=== PATIENT | female | born 1995 | race Caucasian/White ===

== ENCOUNTER 2024-12-30 10:14 | Outpatient (CLI) | payer OTHER, SELFPAY ==
[2024-12-30 10:58] LABS: Basophils # 0.1 K/mm3 (0-0.2); Basophils % 0.6 % (0.1-2.0); Eosinophils # 0.1 Kmm3 (0.0-0.4); Hematocrit 37.4 % (37.0-47.0); Hemoglobin 11.7 g/dL (12.2-16.2); Immature Granulocytes # 0.05 10^3uL; Immature Granulocytes % 0.6 %; Lymphocytes # 2.1 K/mm3 (0.7-4.5); Lymphocytes % 26.3 % (10-50); Mean Corpuscular HGB Conc 31.3 g/dL (31.8-35.4); Mean Corpuscular Hemoglobin 25.8 pg (27.0-31.2); Mean Corpuscular Volume 82.4 fl (81-99); Mean Platelet Volume 11.3 fl (7.4-10.4); Monocytes # 0.4 K/mm3 (0.1-1.0); Monocytes % 4.7 % (1.7-9.3); Neutrophils # 5.3 K/mm3 (1.8-7.8); Neutrophils % 66.8 % (37.0-80.0); Nucleated Red Blood Cells # 0 10^3/uL; Nucleated Red Blood Cells % 0 %; Platelet Count 279 K/mm3 (142-424); Red Blood Count 4.54 M/mm3 (4.20-5.40); Red Cell Distribution Width-SD 41.3 fL; White Blood Count 7.9 K/mm3 (4.8-10.8)
[2024-12-30 11:09] LABS: Hemoglobin A1C 5.7 % (4.0-6.0)
[2024-12-30 11:20] LABS: Albumin Level 4.3 g/dl (3.5-5.0); Chloride 104 mmol/L (98-107); Potassium 4.3 mmoL/L (3.5-5.1); Sodium 139 mmol/L (136-145)
[2024-12-30 11:22] LABS: Blood Urea Nitrogen 14 mg/dl (7-17); Estimated Glomerular Filt Rate 84 ml/min (>60); GFR (African American) 102 ML/MIN (>60)
[2024-12-30 11:23] LABS: Alanine Aminotransferase 24 U/L (12-78); Albumin/Globulin Ratio 1.5 (1.1-1.8); Alkaline Phosphatase 74 U/L (38-126); Anion Gap 10.3 mEq/L (5-15); Aspartate Amino Transferase 23 U/L (14-36); Bilirubin,Total 0.6 mg/dl (0.2-1.3); Calcium 9.2 mg/dl (8.4-10.2); Carbon Dioxide 29 mmol/L (22.0-30.0); Chol/HDL Ratio 5.5 (1-3.5); Cholesterol 166 mg/dl (140-200); Globulin 2.8 g/dL (1.3-3.2); Glucose 126 mg/dl (74-100); HDL Cholesterol 30 mg/dl (40-60); Total Protein,Serum 7.1 g/dl (6.3-8.2); Triglycerides 198 mg/dl (30-150); VLDL Cholesterol 40 mg/dL (0-40)
[2024-12-30 11:34] LABS: Direct LDL Cholesterol 96.05 mg/dL (100-129)
[2024-12-30 11:40] LABS: 25-OH Vitamin D, Total 40.6 ng/mL (30-100)
[2024-12-30 11:42] LABS: Free T4 (Free Thyroxine) 1.18 ng/dl (0.78-2.19)
[2024-12-30 11:54] LABS: Thyroid Stimulating Hormone 1.48 uIU/mL (0.465-4.68)
[2024-12-30 11:58] LABS: Ferritin 10.3 ng/ml (6.24-137)
[2024-12-30 12:26] LABS: Vitamin B12 369 pg/mL (239-931)
[2024-12-31 08:14] LABS: Thyroid Peroxidase Antibodies 10 IU/mL (0-34)
[2024-12-31 17:42] LABS: Thyroglobulin Level <1.0 IU/mL (0.0-0.9)
[2025-01-01 05:29] LABS: Triiodothyronine (T3) Free 3.8 pg/mL (2.0-4.4)
[2025-01-01 13:25] LABS: F026-IgE Pork < 0.10 kU/L (Class 0); F027-IgE Beef < 0.10 kU/L (Class 0); F088-IgE Lamb < 0.10 kU/L (Class 0); Immunoglobulin E, Total 7 IU/mL (6-495); O215-IgE Alpha-Gal < 0.10 kU/L (Class 0)
== END 2024-12-30 23:59 | disposition home or self-care (01) ==
PROVIDERS: PCP Nurse Practitioner Family; Visit Provider Nurse Practitioner Family
DX: L50.9 Urticaria, unspecified (principal); F32.A Depression, unspecified; F41.9 Anxiety disorder, unspecified; R19.7 Diarrhea, unspecified; R63.5 Abnormal weight gain; Z13.220 Encounter for screening for lipoid disorders
CPT/HCPCS: 36415; 80053; 80061; 82306; 82607; 82728; 82785; 83036; 84436; 84439; 84443; 84481; 85025; 86003; 86008; 86376; 86800

== ENCOUNTER 2025-02-11 06:59 | Outpatient (CLI) | payer OTHER, SELFPAY ==
--- NOTE | 2025-02-11 07:00 | CT_ITS ---
FINAL REPORT TECHNIQUE: Multiple axial CT sections were performed through the face without IV contrast. Coronal reconstruction images were performed. This study was performed with techniques to keep radiation doses as low as reasonably achievable (ALARA). Individualized dose reduction techniques using automated exposure control or adjustment of mA and/or kV according to the patient's size were employed. CLINICAL HISTORY: Left TMJ dysfunction, bruxism FINDINGS: There is lobular cysts soft tissue in the right maxillary sinus consistent with retention cysts or polyps. The TMJs appear intact. The mandibular condyles demonstrate smooth margins. IMPRESSION: Chronic right maxillary sinusitis. No TMJ abnormality. Reviewed, Interpreted and Dictated by Geovany Ramirez MD Transcribed by Anisa Contreras Authenticated and . [facility]
--- OUTSIDE RECORDS SUMMARY | 2025-02-11 07:01 | XMS_ITS | Clinical Summary ---
Author Organization Healthcare Address [address] [place] [address] Care Team Providers Care Electronic Sales And Service Technician Name Role Phone Rajat Hess MD Primary Care Provider [phone] Allergies No known active allergies Medications prazosin (Minipress) 2 MG capsule Take 1 capsule (2 mg) by mouth every night. Active FLUoxetine (PROzac) 40 MG capsule Take 1 capsule (40 mg) by mouth 1 (one) time each day. 30 capsule 2 04/15/2024 Active hydrOXYzine HCl (Atarax) 50 MG tablet Take 1 tablet (50 mg) by mouth every 8 (eight) hours if needed for itching. Take one at bedtime as needed 90 tablet 2 04/15/2024 Active OLANZapine (ZyPREXA) 5 MG tablet Take 1 tablet (5 mg) by mouth every night. 30 tablet 1 04/15/2024 Active spironolactone (Aldactone) 50 MG tablet Take 1 tablet (50 mg) by mouth 1 (one) time each day. 30 each 1 04/15/2024 Active Active Problems Problem Noted Date Diagnosed Date Class III obesity with body mass index (BMI) of 40.0 or higher 04/15/2024 History of D&C 04/15/2024 PCOS (polycystic ovarian syndrome) 04/15/2024 Borderline personality disorder 04/15/2024 PTSD (post-traumatic stress disorder) 04/15/2024 Family History Medical History Relation Name Comments Diabetes Father Heart attack Father passed 2021 Relation Name Status Comments Father Social History Tobacco Use Types Packs/Day Years Used Date Smoking Tobacco: Never Passive Smoke Exposure: Never Smokeless Tobacco: Never Tobacco Cessation:Counseling Given: No Alcohol Use Standard Drinks/Week Comments Never 0 (1 standard drink = 0.6 oz pur e alcohol) Humiliation, Afraid, Rape, and Kick questionnair e Answer Date Recorded Within the last year, have y ou been afraid of your partner or ex-partner? No 04/15/2024 Within the last year, have y ou been humiliated or emotionally abused in other ways by your partner or ex-partner? No Within the last year, have y ou been kicked, hit, slapped, or otherwise physically hurt by your partner or ex-partner? No 04/15/2024 Within the last year, have y ou been raped or forced to have any kind of sexual activity by your partner or ex-partner? No 04/15/2024 PHQ-2 Answer Date Recorded Patient Health Questionnaire-2 Score 6 04/15/2024 Hunger Vital Sign Answer Date Recorded Within the past 12 months, y ou worried that your food would run out before you got the money to buy more. Never true 04/15/20 24 Within the past 12 months, t he food you bought just didn't last and you didn't have money to get more. Never true 04/15/2024 PRAPARE - Transportation Answer Date Re corded In the past 12 months, has l ack of transportation kept you from medical appointments or from getting medications? No 04/05 In the past 12 months, has l ack of transportation kept you from meetings, work, or from getting things needed for daily living? No 04/15/2024 Housing Stability Vital Sign Answer Gamaliel e Recorded In the last 12 months, was t here a time when you were not able to pay the mortgage or rent on time? No 04/15/2024 In the last 12 months, how many places have you lived? 2 04/15/2024 In the last 12 months, was t here a time when you did not have a steady place to sleep or slept in a halfway (including now)? No 04/15/2024 PHQ-9 Answer Date Recorded Patient Health Questionnaire-9 Score 21 04/15/2024 Safety and Environment Answer Date Mauricio rded Do you worry that your child may have been physically abused? No 04/15/2024 Do you worry that your child may have been sexua lly abused? No 04/15/2024 Are there any guns kept in o r around your home or where your child spends time? No 04/15/2024 Guns Unloaded or Locked Away Not on file 06/2024 Utilities Answer Date Recorded In the past 12 months has [employer], gas, oil, or water company threatened to shut off services in your home? No 04/15/2024 Comments Unknown Sex and Gender Information Value Date Recorded Sex Assigned at Not on file Legal Sex Female 10:44 AM EDT Gender Identity Not on file Sexual Orientation Not on file Last Filed Vital Signs Vital Sign Reading Time Taken Comments Blood Pressure 116/74 04/15/2024 9:46 AM EDT Pulse 67 04/15/2024 9:46 AM EDT Temperature 36.4 C (97.6 F) 04/15/2024 9:46 AM EDT Respiratory Rate - - Oxygen Saturation 99% 04/15/2024 9:46 AM EDT Inhaled Oxygen Concentration - - Weight 108 kg (238 lb 12.8 oz) 04/15/2024 9:46 A M EDT Height 154.9 cm (5' 1 ) 04/15/2024 9:46 AM EDT Body Mass Index 45.12 04/15/2024 9:46 AM EDT Plan of Treatment Health Maintenance Due Date Last Done Comments [facility]-HIV Screening 1994 [facility]-Hepatitis C Screening 1994 [facility]-Varicella Vaccines (1 of 2 - 13+ 2-dose series) 10/23/2007 HPV Vaccines (1 - 3-dose series) 2009 [facility]-DTaP,Tdap,and Td Vaccine s (1 - Tdap) 2013 [facility]-Hepatitis B Vaccines (1 of 3 - 19+ 3-dose series) 2013 [facility]-Pap Smear 10/23/2015 [id number] Vaccine ( - 2023- season) 2024 [facility]- SDOH Screenings 10/13/2024 [facility]-Adult SDOH Screenings 10/13/2024 04/15/2024 [facility]-Infant/Child/Adol SDOH Screenings 10/13/2024 04/15/2024 [facility]-Cervical Cancer Screening 2024 [facility]-HPV/Cotest 2024 [facility]-Influenza Vaccine (#1) 2025 [facility]-Depression Screening 04/15/2025 024, 04/15/2024 [facility]-Zoster Vaccines (1 of 2) 2044 [facility]-Obesity Intervention Completed 04/15/2024 [facility]-HIB Vaccines Aged Out No longer e ligible based on patient's age to complete this topic [facility]-Hepatitis A Vaccines Aged Out No longer eligible based on patient's age to complete this topic [facility]-IPV Vaccines Aged Out No longer e ligible based on patient's age to complete this topic [facility]-Pneumococcal Vaccine: Pediatrics (0 to 5 Years) and At-Risk Patients (6 to 49 Years) Aged Out No longer eligible b ased on patient's age to complete this topic [facility]-Rotavirus Vaccines Aged Out No lo nger eligible based on patient's age to complete this topic Care Teams Electronic Sales And Service Technician Relationship Specialty Start Date End Date Rajat Hess MD [address] [place] [address] PCP - General 04/15/24
== END 2025-02-11 23:59 | disposition home or self-care (01) ==
LOC: RAD 07:00
PROVIDERS: PCP Nurse Practitioner Family; Visit Provider Nurse Practitioner Family
DX: J32.0 Chronic maxillary sinusitis (principal); F45.8 Other somatoform disorders
CPT/HCPCS: 70486

== ENCOUNTER 2025-03-03 09:24 | Outpatient (CLI) | payer OTHER, SELFPAY ==
--- OUTSIDE RECORDS SUMMARY | 2025-03-03 09:28 | XMS_ITS | Clinical Summary ---
Author Organization Healthcare Address [address] [place] [address] Care Team Providers Care Edi Programmer Analyst Name Role Phone Rajat Hess MD Primary Care Provider [phone] Allergies No known active allergies Medications prazosin [...] place to sleep or slept in a jail (including now)? No 04/15/2024 PHQ-9 Answer Date [...] Recorded In the past 12 months has [employer], gas, oil, or water company threatened to [...] 19+ 3-dose series) 2013 [facility]-Pap Smear 10/23/2015 [id number] Vaccine ( - 2023- season) 2024 [facility]- [...] age to complete this topic Care Teams Edi Programmer Analyst Relationship Specialty Start Date End Date Rajat Hess MD [address] [place] [address] PCP - General 04/15/24
[2025-03-03 09:32] LABS: Influenza A, PCR Not Detected (NotDetected); Influenza B, PCR Not Detected (NotDetected)
[2025-03-03 10:05] LABS: Coronavirus 19, PCR Detected (NotDetected)
== END 2025-03-03 23:59 | disposition home or self-care (01) ==
LOC: LAB 09:25
PROVIDERS: PCP Nurse Practitioner Family; Visit Provider Nurse Practitioner Family
DX: R68.89 Other general symptoms and signs (principal)
CPT/HCPCS: 87636

== ENCOUNTER 2025-04-19 08:50 | Outpatient (CLI) | payer OTHER, SELFPAY ==
--- OUTSIDE RECORDS SUMMARY | 2025-04-19 09:11 | XMS_ITS | Clinical Summary ---
Author Organization Healthcare Address [address] [place] [address] Care Team Providers Care Oil And Gas Exploration Technician Name Role Phone Rajat Hess MD Primary Care Provider [phone] Allergies No known active allergies Medications prazosin [...] place to sleep or slept in a skilled nursing (including now)? No 04/15/2024 PHQ-9 Answer Date [...] Recorded In the past 12 months has [employer], gas, oil, or water company threatened to [...] [facility]-HIV Screening 1994 [facility]-Hepatitis C Screening 1994 [facility]-Infant/Child/Adol SDOH Screenings 1994 [facility]-Varicella Vaccines (1 of 2 - 13+ 2-dose series) 10/23/2007 [facility]- SDOH Screenings 2012 [facility]-Adult SDOH Screenings 2012 [facility]-DTaP,Tdap,and Td Vaccine s (1 - Tdap) 2013 [facility]-Hepatitis B Vaccines (1 of 3 - 19+ 3-dose series) 2013 [facility]-Pap Smear 10/23/2015 HPV Vaccines (1 - 3-dose SCD M series) 2021 [facility]-Cervical Cancer Screening 2024 [facility]-HPV/Cotest 2024 [id number] Vaccine ( season) 2025 [facility]-Influenza Vaccine (#1) 2025 [facility]-Depression Screening 04/15/2025 [...] age to complete this topic Care Teams Oil And Gas Exploration Technician Relationship Specialty Start Date End Date Rajat Hess MD [address] [place] [id number] PCP - General 04/15/24
[2025-04-19 10:27] LABS: Alanine Aminotransferase 25 U/L (12-78); Albumin Level 3.9 g/dl (3.5-5.0); Albumin/Globulin Ratio 1.4 (1.1-1.8); Alkaline Phosphatase 79 U/L (38-126); Anion Gap 11.2 mEq/L (5-15); Aspartate Amino Transferase 24 U/L (14-36); Bilirubin,Total 0.7 mg/dl (0.2-1.3); Blood Urea Nitrogen 7 mg/dl (7-17); Calcium 8.7 mg/dl (8.4-10.2); Carbon Dioxide 26 mmol/L (22.0-30.0); Chloride 103 mmol/L (98-107); Creatinine,Serum 0.80 mg/dl (0.52-1.04); Estimated Glomerular Filt Rate 84 ml/min (>60); GFR (African American) 102 ML/MIN (>60); Globulin 2.8 g/dL (1.3-3.2); Glucose 155 mg/dl (74-100); Potassium 4.2 mmoL/L (3.5-5.1); Sodium 136 mmol/L (136-145); Total Protein,Serum 6.7 g/dl (6.3-8.2); Uric Acid 6.2 mg/dl (2.5-6.2)
[2025-04-19 10:44] LABS: 25-OH Vitamin D, Total 30.9 ng/mL (30-100)
[2025-04-19 12:01] LABS: Hemoglobin A1C 6.0 % (4.0-6.0)
[2025-04-19 12:19] LABS: Ferritin 11.1 ng/ml (6.24-137)
[2025-04-20 08:13] LABS: RA Latex Turbid. <10.0 IU/mL (<14.0)
[2025-04-20 12:13] LABS: Insulin Level Total 31.6 uIU/mL (2.6-24.9)
== END 2025-04-19 23:59 | disposition home or self-care (01) ==
LOC: LAB 08:51
PROVIDERS: PCP Nurse Practitioner Family; Visit Provider Nurse Practitioner Family
DX: M25.50 Pain in unspecified joint (principal); D64.9 Anemia, unspecified; R63.5 Abnormal weight gain
CPT/HCPCS: 36415; 80053; 82306; 82728; 83036; 83525; 84550; 85651; 86038; 86431

== ENCOUNTER 2025-05-04 12:42 | Outpatient (CLI) | payer OTHER, SELFPAY | END 2025-05-04 23:59 | disposition home or self-care (01) | LOC: DIETICIAN 12:43 | PROVIDERS: PCP Nurse Practitioner Family; Visit Provider Nurse Practitioner Family | DX: E16.1 Other hypoglycemia (principal); R73.03 Prediabetes | CPT/HCPCS: 97802 ==

== ENCOUNTER 2025-06-29 10:19 | Outpatient (CLI) | payer OTHER, SELFPAY ==
--- OUTSIDE RECORDS SUMMARY | 2025-06-29 10:21 | XMS_ITS | Clinical Summary ---
Author Organization Healthcare Address [address] [place] [address] Care Team Providers Care Olive Grower Name Role Phone Rajat Hess MD Primary Care Provider [phone] Allergies No known active allergies Medications prazosin [...] index (BMI) of 40.0 or higher 04/15/2024 PCOS (polycystic ovarian syndrome) 04/15/2024 Borderline personality disorder 04/15/2024 PTSD (post-traumatic stress disorder) 04/15/2024 Resolved Problems Problem Noted Date Diagnosed Date Resolved Date History of D&C 04/15/2024 04/25/2025 Family History Medical History Relation Name Comments [...] place to sleep or slept in a half-way (including now)? No 04/15/2024 PHQ-9 Answer Date [...] Recorded In the past 12 months has [employer], [employer], oil, or water [employer] threatened to shut off services in your [...] 2021 [facility]-Cervical Cancer Screening 2024 [facility]-HPV/Cotest 2024 [id number] Vaccine ( season) 2025 [facility]-Influenza Vaccine (#1) [...] age to complete this topic Care Teams Olive Grower Relationship Specialty Start Date End Date Rajat Hess MD [address] [place] [phone] PCP - General 04/15/24
--- NOTE | 2025-06-29 10:28 | US_ITS ---
PROCEDURE: US TRANSVAGINAL CLINICAL INDICATION: IUD location COMPARISON: No exams were available for comparison FINDINGS: Transvaginal sonographic images of the pelvis were obtained. UTERUS: 6.5cm x 4.6 cm x 3.1cm with a combined endometrial thickness of 2.8mm. There is an IUD within the uterine cavity in the correct position. LEFT OVARY: 4.5cmx3.6 cmx2.8cm with a volume of 23.9ml. There are multiple small peripheral follicles giving the ovary a polycystic appearance. RIGHT OVARY: 4.0cmx 2.7 cmx3.5 cm with a volume of 19.8ml. There are multiple small peripheral follicles giving the ovary a polycystic appearance. Both ovaries are seen and appear polycystic. Doppler flow to both ovaries are seen. There is no fluid in the cul-de-sac. IMPRESSION: 1. Anteverted uterus normal in shape and size. The endometrium is thin. 2. There is an IUD within the uterine cavity in the correct position. 3. Both ovaries are seen and appear polycystic. 4. No fluid in the cul-de-sac. Dictated by: Juan José Tolliver MD 06/29/2025 14:02 Juan José Tolliver MD in OV 06/29/2025 14:02
== END 2025-06-29 23:59 | disposition home or self-care (01) ==
LOC: RAD 10:19
PROVIDERS: PCP Nurse Practitioner Family; Visit Provider Obstetrics & Gynecology
DX: E28.2 Polycystic ovarian syndrome (principal); N85.4 Malposition of uterus; Z30.431 Encounter for routine checking of intrauterine contraceptive device
CPT/HCPCS: 76830

== ENCOUNTER 2025-07-28 07:55 | Emergency (ER) | payer OTHER, SELFPAY ==
[2025-07-28 07:56] VITALS: BP 127/92; PULSE 65; RESP 14; TEMP 36.8; O2SAT 99; BMI 43.9
--- NOTE | 2025-07-28 08:06 | HMH.EDGENADL ---
Discharge Plan Disposition Patient Disposition: Home, Self-Care Condition: Fair Prescriptions Prescriptions: No Action clobetasol [Olux] 0.05 % foam 1 applic topical BID 14 Days Qty: 100 1RF buspirone 7.5 mg tablet 7.5 mg PO BID Qty: 60 2RF hydroxyzine pamoate 25 mg capsule 50 mg PO TID PRN (Reason: anxiety ) 30 Days Qty: 180 0RF triamcinolone acetonide 0.025 % cream 1 applic topical TID Qty: 454 1RF Referrals Follow up/Referrals: Anamaria Mcdermott APRN [Primary Care Provider, Medical] - See instructions Activity Restrictions/Add. Instructions Additional Instructions/Restrictions: You will be contacted for the results of your testing and if treatment is indicated. If you develop any new or worsening symptoms, or if you become concerned for your health for any reason, return to the emergency department for evaluation. Clinical Impressions Clinical Impression: Accidental hypodermic needlestick injury Print Language Print Language: Vietnamese Discharge ED Provider: Juan Schrader General Adult HPI General Chief complaint: Extremity Injury, Upper Stated complaint: WC needle stick exposure(blood) Time Seen by Provider: 07/28/25 08:00 History of Present Illness HPI narrative: Emily Block is a 29y female with a history of PCOS who presents to the emergency department after an incidental needlestick. 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 She states that this happened just prior to arrival. She states that they are drawing labs on the patient but was told that she needs to come to the emergency department. Patient has no complaints or concerns at this time. She denies any history of HIV or hepatitis. She states that her tetanus shot is up-to-date. Related Data Previous Rx's ?Medication ?Instructions ?Recorded clobetasol 0.05 % topical foam 1 applic topical BID 2 weeks #100 04/09/25 (Olux) grams buspirone 7.5 mg tablet 7.5 mg PO BID #60 tabs 05/17/25 hydroxyzine pamoate 25 mg capsule 50 mg (2 x 25 mg) PO TID PRN 05/17/25 anxiety 30 days #180 caps triamcinolone acetonide 0.025 % 1 applic topical TID #454 grams 05/17/25 topical cream Allergies Allergy/AdvReac Type Severity Reaction Status Date / Time Pork/Porcine Containing Allergy Mild Vomiting Verified 06/24/25 15:11 Products [facility] Disclaimer: The information contained in this section may have been updated after the patient was seen, as this information can be updated by other users. Medical History (Updated 07/28/25 @ 09:08 by Juan Schrader MD) PCOS (polycystic ovarian syndrome) Bleeding after intercourse PTSD (post-traumatic stress disorder) Anxiety and depression Borderline personality disorder Surgical History H/O wisdom tooth extraction H/O dilation and curettage Family History Other Alcoholism Bleeding disorder Diabetes FHx: mental illness Heart attack Hypertension Substance abuse Social History (Updated 06/24/25 @ 15:13 by SIVAN Mantilla) Smoking Status: Never smoker smoking status start date: 10 yo smoking status stop date: 2 mo ago alcohol intake: never substance use type: denies use current occupational status: employed Travel in the last 8 weeks?: None Have you lived/traveled outside US in past 30 days?: No Contact w/someone who lives/traveled outside US past 30 days?: No Exposure to someone with infectious disease in past 14 days?: No Do you have a fever (greater than 100.4 F or 38 C)?: No Have you tested positive for COVID-19?: No Exposed to someone with COVID-19 in past 14 days?: No Do you have a sore throat?: No Do you have a cough?: No Do you have any weakness?: No Do you have any diarrhea?: No Are you experiencing any unusual bleeding?: No Do you have any muscle aches/pain?: No Do you have any abdominal pain?: No Are you experiencing loss of taste or smell?: No Other Medical History Have you received the Pneumonia Vaccine: No ROS Obtained: Yes Systems reviewed as appropriate & no additional complaints except as documented Physical Exam General General appearance: alert and in no apparent distress Head Head exam: atraumatic Eye Eye exam: Present normal appearance ENT ENT exam: Present normal external ear exam Neck Neck exam: Present full ROM Chest Chest inspection: Present symmetric chest wall rise Respiratory Respiratory exam: Present normal lung sounds bilaterally; Absent respiratory distress Cardiovascular Cardiovascular exam: Present regular rate and normal rhythm Abdominal Exam Abdominal exam: Present soft; Absent tenderness or guarding Extremities Exam Extremities exam: Present normal inspection Back Exam Back exam: Present normal inspection Neurological Exam Neurological exam: Present alert and oriented X3 Psychiatric Psychiatric exam: Present normal affect Skin Skin exam: Present warm, dry and other (Superficial, very small puncture wound to the right volar forearm without bleeding) Medical Decision Making Medical Records Screening: Per USPSTF and CDC recommendations, given the prevalence of disease in our region, it is our hospital?s policy to screen for HIV and viral Hepatitis for all patients aged 18 and over and those with ongoing risk factors. Ricardo Inquiry Pt receiving controlled substance: No Vital Signs: 07/28/25 07:56 07/28/25 09:08 Temperature 98.3 F 98.0 F Temperature Source Oral Pulse Rate 85 Pulse Rate [Left] 65 Respiratory Rate 14 19 Blood Pressure 133/97 H Blood Pressure [Right Arm] 127/92 H Blood Pressure Mean [Right Arm] 103 Blood Pressure Source [Right Arm] Automatic Cuff Blood Pressure Position [Right Arm] Sitting 02 Sat by Pulse Oximetry 99 Oxygen Delivery Method Room Air Orders (Tests/Meds): ORDERS Category Date Time Status Complete Blood Count Auto Diff Stat Lab 07/28/25 08:35 Received HBsAg Screen Stat Lab 07/28/25 08:35 Received HIV Combo Stat Lab 07/28/25 08:35 Received Hepatitis B Surf Ab Quant Stat Lab 07/28/25 08:35 Received Hepatitis C Ab Qual. W/ RFX Stat Lab 07/28/25 08:35 Received Liver Panel Stat Lab 07/28/25 08:35 Received PT/PTT Stat Lab 07/28/25 08:35 Received UDS [Drug Screen,Urine] Stat Lab 07/28/25 08:35 Received Medical Decision Narrative: Emily Block is a 29y female with a history of PCOS who presents to the emergency department after an incidental needlestick. 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 She states that this happened just prior to arrival. She states that they are drawing labs on the patient but was told that she needs to come to the emergency department. Patient has no complaints or concerns at this time. She denies any history of HIV or hepatitis. She states that her tetanus shot is up-to-date. On arrival, patient is hemodynamically stable and in no distress. She is resting comfortably. Patient has no complaints at this time. She has a very small puncture/abrasion to the right volar forearm that she describes as from the needlestick that happened this morning. Will obtain order sent via postexposure prophylaxis employee protocol. Patient does not require tetanus update as she states that this is currently up-to-date. facilities maintenance supervisor has been made aware and will be drawing labs on source patient. No additional workup is indicated at this time. Patient will be contacted if any results are abnormal and if there is any indication for treatment. She demonstrated understanding and was in agreement this plan. She was then discharged from the emergency department in stable condition. Critical Care Critical Care Time Critical Care Time: No
--- OUTSIDE RECORDS SUMMARY | 2025-07-28 08:16 | XMS_ITS | Clinical Summary ---
Author Organization Healthcare Address [address] [place] [address] Care Team Providers Care Track Manager Name Role Phone Rajat Hess MD Primary Care Provider [phone] Allergies No known active allergies Medications prazosin [...] Recorded In the past 12 months has [employer], [employer], oil, or water [employer] threatened to shut off services in your [...] 19+ 3-dose series) 2013 [facility]-Pap Smear 10/23/2015 [facility]-Cervical Cancer Screening 2024 [facility]-HPV/Cotest 2024 [id number] Vaccine ( season) 2025 [facility]-Influenza Vaccine (#1) 2025 [facility]-Depression Screening 04/15/2025 024, 04/15/2024 [facility]Y-Zoster Vaccines (1 of 2) 2044 [facility]-Obesity Intervention Completed 04/15/2024 HPV Vaccines (No Doses Required) Completed [facility]-HIB Vaccines Aged Out No longer e [...] age to complete this topic Care Teams Track Manager Relationship Specialty Start Date End Date Rajat Hess MD [address] [place] [phone] PCP - General 04/15/24
--- NOTE | 2025-07-28 08:21 | PC.NURSE ---
lab has been notified of straight stick and drug screen for pt
[2025-07-28 08:55] LABS: Hematocrit 38.3 % (37.0-47.0); Hemoglobin 12.3 g/dL (12.2-16.2); Immature Granulocytes % 1.1 %; Mean Corpuscular HGB Conc 32.1 g/dL (31.8-35.4); Mean Corpuscular Hemoglobin 25.7 pg (27.0-31.2); Mean Corpuscular Volume 80.1 fl (81-99); Nucleated Red Blood Cells % 0 %; Platelet Count 276 K/mm3 (142-424); Red Blood Count 4.78 M/mm3 (4.20-5.40); Red Cell Distribution Width-SD 44.4 fL; White Blood Count 9.3 K/mm3 (4.8-10.8)
[2025-07-28 09:08] VITALS: BP 133/97; PULSE 85; RESP 19; TEMP 36.7; O2SAT 98
[2025-07-28 09:12] LABS: Activated Partial Thrombo Time 26.2 seconds (22.8-30.6); INR 1.01 (0.9-1.1); Prothrombin Time 11.2 seconds (10.1-12.5)
[2025-07-28 09:24] LABS: Albumin Level 4.3 g/dl (3.5-5.0)
[2025-07-28 09:27] LABS: Alanine Aminotransferase 18 U/L (12-78); Alkaline Phosphatase 77 U/L (38-126); Aspartate Amino Transferase 20 U/L (14-36); Bilirubin,Direct 0.0 mg/dl (0.0-0.4); Bilirubin,Indirect 0.3 mg/dL (0.0-0.9); Bilirubin,Total 0.3 mg/dl (0.2-1.3); Bilirubin,Unconjugated 0.3 mg/dL (0.0-1.1); Total Protein,Serum 7.1 g/dl (6.3-8.2)
[2025-07-28 10:18] LABS: Hepatitis C Ab Qual. W/ RFX NEGATIVE (Negative)
[2025-07-28 10:32] LABS: Amphetamine/Metha Screen,Urine Negative ng/ml (<1000); Barbiturates Screen,Urine Negative ng/ml (<200); Benzodiazepines Screen,Urine Negative ng/ml (<200); Methadone Screen,Urine Negative ng/ml (<300); Opiate Screen,Urine Negative ng/ml (<300); Phencyclidine Screen,Urine Negative ng/ml (<25)
[2025-07-29 05:12] LABS: Hepatitis B Surface Antigen Negative (Negative)
== END 2025-07-28 09:12 | disposition home or self-care (01) ==
PROVIDERS: Emergency Provider Student in an Organized Health Care Education/Training Program; PCP Nurse Practitioner Family
DX: S51.831A Puncture wound without foreign body of right forearm, initial encounter (principal); W46.1XXA Contact with contaminated hypodermic needle, initial encounter
CPT/HCPCS: 80076; 80307; 85025; 85610; 85730; 86706; 86803; 87340; 87389; 99283